=== PATIENT | female | born 1995 | race Caucasian/White ===

== ENCOUNTER 2017-07-08 12:29 | Emergency (ER) | payer BC ==
[2017-07-08 13:03] VITALS: BP 145/62
--- NOTE | 2017-07-08 13:19 | UC ---
Abdominal Pain Female HPI - HPI Summary HPI Summary: 21 yo female with 2-3 day hx of waxing and waning rlq abd pain chills sweating anorexia nausea worse with movement of stretching out straight no UTI symptoms no vaginal d/c states she is not sexually active - History of Current Complaint Chief Complaint: UCAbdominalPain Stated Complaint: LOWER ABD PAIN Time Seen by Provider: 07/08/17 12:59 Hx Obtained From: Patient Hx Last Menstrual Period: 06/23/17 Onset/Duration: Gradual Onset, Lasting Days Timing: Constant Severity Initially: Mild Severity Currently: Moderate Pain Intensity: 7 Pain Scale Used: 0-10 Numeric Location: Discrete At: RLQ Radiates: No Character: Aching, Sharp Aggravating Factor(s): Movement Alleviating Factor(s): Position Associated Signs and Symptoms: Positive: Dizzy, Nausea Allergies/Adverse Reactions: Allergies Allergy/AdvReac Type Severity Reaction Status Date / Time No Known Allergies Allergy Verified 07/08/17 12:59 Home Medications: Home Medications Escitalopram Oxalate [Lexapro 10 mg] 10 mg PO DAILY 07/08/17 [History Confirmed 07/08/17] PMH/Surg Hx/FS Hx/Imm Hx Previously Healthy: Yes - Surgical History Surgical History: None - Family History Known Family History: Positive: Hypertension - Social History Alcohol Use: Rare Substance Use Type: None Smoking Status (MU): Never Smoked Tobacco - Immunization History Most Recent Influenza Vaccination: 06/16/16 Review of Systems Constitutional: Negative Skin: Negative Eyes: Negative ENT: Negative Respiratory: Negative Cardiovascular: Negative Gastrointestinal: Abdominal Pain, Nausea Genitourinary: Negative Motor: Negative Neurovascular: Negative Musculoskeletal: Negative Neurological: Negative Psychological: Negative Is Patient Immunocompromised?: No All Other Systems Reviewed And Are Negative: Yes Physical Exam Triage Information Reviewed: Yes Appearance: Well-Appearing, No Pain Distress, Well-Nourished Vital Signs: Initial Vital Signs Temp 98.3 F 07/08/17 13:00 Pulse 118 07/08/17 13:00 Resp 20 07/08/17 13:00 BP 145/62 07/08/17 13:00 Pulse Ox 100 07/08/17 13:00 Vital Signs Reviewed: Yes Eyes: Positive: Conjunctiva Clear ENT: Positive: Hearing grossly normal. Negative: Nasal congestion, Nasal drainage, Trismus, Muffled/hoarse voice Neck: Positive: Supple, Nontender Respiratory: Positive: Lungs clear, Normal breath sounds, No respiratory distress, No accessory muscle use Cardiovascular: Positive: RRR, No Murmur, Pulses Normal Abdomen Description: Positive: Other: - abd overall has a lumpy/nodular consistency to palpation. Negative: Nontender - RLQ abd tenderness Musculoskeletal: Positive: ROM Intact, No Edema Neurological: Positive: Alert Psychological: Positive: Normal Response To Family Skin Exam: Normal Abd Pain Female Course/Dx - Course Course Of Treatment: Pt advised of wide differential of abd pain and our inability to work it up. I suggested she go to [facility] for further investigation. She refused EMS transfer. AMA signed for that reason. Dr. Lopez aware - Differential Dx/Diagnosis Provider Diagnoses: Ride lower quadrient abd pain of uncertain cause Discharge - Discharge Plan Condition: Stable Disposition: TRANS HIGHER L OF CARE FAC Referrals: Non Staff,Doctor [Primary Care Provider] -
== END 2017-07-08 13:17 | disposition short-term general hospital (02) ==
LOC: UCCORT 12:29
DX: R10.31 Right lower quadrant pain (principal); R42 Dizziness and giddiness; R11.0 Nausea; R68.83 Chills (without fever)
CPT/HCPCS: 99212; G0463

== ENCOUNTER 2017-11-19 13:26 | Emergency (ER) | END 2017-11-19 14:50 | disposition left against medical advice (07) | LOC: UCCORT 13:26 | DX: J02.9 Acute pharyngitis, unspecified (principal); Z53.21 Procedure and treatment not carried out due to patient leaving prior to being seen by health care provider ==

== ENCOUNTER 2017-12-18 14:53 | Emergency (ER) | payer BC ==
[2017-12-18 15:24] VITALS: BP 142/71
[2017-12-18] MEDS ORDERED: Tetan/Diph/Pertus SYR(Tdap)* 0.5 ML SYR(BOOSTRIX) use SYR IM ONE (15:48)
--- NOTE | 2017-12-18 15:54 | UC ---
Skin Complaint HPI - HPI Summary HPI Summary: Two small superficial lacerations. She needs tetanus shot. Minor pain. - History of Current Complaint Chief Complaint: UCLaceration Time Seen by Provider: 12/18/17 15:41 Stated Complaint: LACERATION - LEFT LEG Hx Obtained From: Patient Hx Last Menstrual Period: 12/11/17 Onset/Duration: Sudden Onset, Lasting Hours Skin Exposure Onset/Duration: Hours Ago Timing: Constant Onset Severity: Mild Current Severity: Mild Pain Intensity: 4 Location: Discrete Character: Pain Aggravating Factor(s): Touch Alleviating Factor(s): Nothing Associated Signs & Symptoms: Positive: Tenderness. Negative: Numbness, Thirst, Pallor, Chest Pain, Syncope, Drainage - Allergy/Home Medications Allergies/Adverse Reactions: Allergies Allergy/AdvReac Type Severity Reaction Status Date / Time No Known Allergies Allergy Verified 12/18/17 15:24 Review of Systems Skin: Other - laceration All Other Systems Reviewed And Are Negative: Yes PMH/Surg Hx/FS Hx/Imm Hx Previously Healthy: No - obesity - Surgical History Surgical History: None - Family History Known Family History: Positive: None, Hypertension - Social History Alcohol Use: None Substance Use Type: None Smoking Status (MU): Never Smoked Tobacco - Immunization History Most Recent Influenza Vaccination: 06/16/16 Most Recent Tetanus Shot: 9+ years ago Physical Exam Triage Information Reviewed: Yes Appearance: Well-Appearing, No Pain Distress, Obese Vital Signs: Initial Vital Signs Temp 98.8 F 12/18/17 15:19 Pulse 90 12/18/17 15:19 Resp 17 12/18/17 15:19 BP 142/71 12/18/17 15:19 Pulse Ox 99 12/18/17 15:19 Vital Signs Reviewed: Yes ENT: Positive: Normal ENT inspection Neck: Positive: Supple. Negative: Nuchal Rigidity Respiratory: Positive: No respiratory distress, No accessory muscle use Cardiovascular: Positive: Brisk Capillary Refill Abdomen Description: Negative: Distended, Guarding Musculoskeletal: Positive: Strength Intact, ROM Intact, No Edema Neurological: Positive: Alert, Muscle Tone Normal. Negative: Fatigued Skin Exam: Other - two small parallel scratches one is not into dermis and the upper one is into the dermis superficially. The are both 6cm in length. Left lateral thigh. Laceration Repair - Laceration Repair 2 Description: Linear Laceration Size After Repair: Length (cm) - 6cm Modified For Repair: No Cleansing Completed Via Routine Prep: Yes Closure Material: SteriStrips Closure Method: Single Layer Suture Of: Skin Course/Dx - Course Course Of Treatment: wound care described in detail. - Diagnoses Provider Diagnoses: lacerations. Steri strips. Discharge - Sign-Out/Discharge Documenting (check all that apply): Discharge - Discharge Plan Condition: Good Disposition: HOME Patient Education Materials: Laceration (ED) Referrals: Non Staff,Doctor [Primary Care Provider] - - Billing Disposition and Condition Condition: GOOD Disposition: HOME
== END 2017-12-18 16:14 | disposition home or self-care (01) ==
LOC: UCCORT 14:53
DX: S71.112A Laceration without foreign body, left thigh, initial encounter (principal); X58.XXXA Exposure to other specified factors, initial encounter; Y93.9 Activity, unspecified; Y92.9 Unspecified place or not applicable
CPT/HCPCS: 12002; 90471; 90715; 99211; G0463